=== PATIENT | male | born 1940 | race Caucasian/White ===

== ENCOUNTER 2018-10-31 09:55 | Outpatient (CLI) | payer MEDICARE, OTHER ==
--- NOTE | 2018-10-31 17:54 | PET ---
PET CT: 10/31/18 HISTORY: 78-year-old male with squamous cell carcinoma of the base of the tongue. Exam is requested for initia l staging. TECHNIQUE: PET scan with CT attenuation correction is performed from the vertex through the proximal thighs foll owing the intravenous administration of 12.8 millicuries in the right antecubital fossa. COMPARISON: None. CORRELATION: CT neck dated 10/02/18 from [facility]. FINDINGS: There is focal increased uptake in the right side of the base of the tongue consistent with malignanc y. This demonstrates an SUV of 4.8. No zainab hypermetabolism is seen in the neck, axilla, chest, abdomen or pelvis. No hypermetabolic pul monary nodules, liver, adrenal, or skeletal lesions are seen. There is physiologic activity in the GI and tracts, heart and brain. The CT scan used for attenuation correction demonstrates no evidence for pleural effusions, or ascite s. Incidental note is made of a 7.5 cm left adrenal mass. No abnormal localization is seen in this ma ss. There is colonic diverticulosis. Low density lesions in the liver are likely cysts and demonstrate no abnormal FDG localization. IMPRESSION: 1. Malignancy in the base of the right side of the tongue without evidence of metastatic disease . 2. Large (7.5 cm) left adrenal mass without abnormal FDG localization. POS: SHAHIDA
== END 2018-10-31 09:56 | disposition home or self-care (01) ==
LOC: PET 09:55
PROVIDERS: ATTEND Radiology Radiation Oncology
DX: C01 Malignant neoplasm of base of tongue (principal); E27.8 Other specified disorders of adrenal gland
CPT/HCPCS: 78815; A9552

== ENCOUNTER 2019-02-11 12:52 | Outpatient (CLI) | payer MEDICARE, OTHER ==
[~2019-02-11 12:52] MED LIST: Iopamidol 370 76% 100 ML VIAL ONE
--- NOTE | 2019-02-11 15:30 | CT ---
PRE AND POST CONTRAST ENHANCED CT IMAGES BRAIN: History: History of tongue cancer with previous radiation. FINDINGS: The brain is unremarkable. No evidence of intracranial masses, hemorrhages, strokes or contusions see n. Ventricles are of normal size. No evidence of sub or epidural hematoma is seen. No abnormal areas of intracranial enhancement seen. IMPRESSION: Unremarkable pre and post contrast enhanced CT images of the brain. POS: SHAHIDA
--- NOTE | 2019-02-11 15:35 | CT ---
CONTRAST ENHANCED CT IMAGES SOFT TISSUE NECK 02/11/19 HISTORY: History of base of tongue cancer. Prior radiation. Complaining of soreness and pain to tongue. Contrast enhanced CT images of the soft tissue neck obtained. CT images demonstrate some minimal area of soft tissue asymmetry in the right vallecula. This may represent mucosal redundancy versus mass. Correlate with direct visualization. No other definite masses seen. No definite evidence of lymphadenopathy seen. 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 IMPRESSION: Possible subtle area of mucosal irregularity in the right vallecula. Correlate with direct visualizat ion. POS: SHAHIDA
== END 2019-02-11 12:53 | disposition home or self-care (01) ==
LOC: CT 12:52
PROVIDERS: ATTEND Internal Medicine
DX: C01 Malignant neoplasm of base of tongue (principal)
CPT/HCPCS: 36415; 70470; 70491; 80053; 85025; Q9967